=== PATIENT | female | born 1975 | race African-American/Black ===

== ENCOUNTER 2018-07-16 00:56 | Emergency (ER) | payer BC ==
[~2018-07-16] VITALS: Ht 167.6 cm; Wt 90.0 kg
[2018-07-16] MEDS ORDERED: SODIUM CHLORIDE 0.9% 1,000 ML IV ONE (01:15)
[2018-07-16 01:44] LABS: EOSINOPHILS % 3.2 % (0.0-5.0); HEMATOCRIT. 40.9 % (36.0-48.0); HEMOGLOBIN. 14.1 g/dL (12.0-16.0); LYMPHOCYTES % 13.9 % (20.0-50.0); MEAN CORPUSCULAR HEMOGLOBIN 30.9 pg (28.0-32.0); MEAN CORPUSCULAR VOLUME 89.5 fL (81.0-99.0); MEAN PLATELET VOLUME 7.4 fl (7.4-10.4); MONOCYTES % 6.6 % (2.0-8.0); NEUTROPHILS % 75.3 % (40.0-76.0); PLATELET 284 x1000/uL (130-400); RED BLOOD CELL COUNT 4.57 mill/uL (4.2-5.4); RED CELL DISTRIBUTION WIDTH 13.6 % (11.6-14.6)
[2018-07-16 01:50] LABS: CHLORIDE 110 mEq/L (98-107)
[2018-07-16 01:55] LABS: ETHANOL BLOOD < 10 mg/dL
[2018-07-16 01:59] LABS: T4 FREE 0.77 ng/dL (0.76-1.46)
[2018-07-16 03:19] LABS: *BARBITURATES SCREEN URINE NEGATIVE (NEGATIVE); CANNABINOID URINE SCREEN NEGATIVE (NEGATIVE); OPIATES URINE SCREEN NEGATIVE (NEGATIVE); PHENCYCLIDINE URINE SCREEN NEGATIVE (NEGATIVE)
[2018-07-16 03:20] LABS: *BENZODIAZEPINES SCREEN URINE NEGATIVE (NEGATIVE); *COCAINE SCREEN URINE NEGATIVE (NEGATIVE); METHADONE URINE SCREEN NEGATIVE (NEGATIVE)
[2018-07-16 03:21] LABS: *AMPHETAMINES SCREEN URINE NEGATIVE (NEGATIVE)
[2018-07-16 05:42] VITALS: BP 96/75
== END 2018-07-16 06:15 | disposition home or self-care (01) ==
LOC: ER 01:41 → CANBEDREQ 07:56
DX: I47.1 Supraventricular tachycardia (principal); R45.1 Restlessness and agitation; F43.0 Acute stress reaction; Z56.6 Other physical and mental strain related to work
CPT/HCPCS: 36415; 71045; 80053; 80305; 80320; 84439; 84443; 85025; 93005; 99284; J7030; Z7610; G0480